=== PATIENT | male | born 1985 | race Caucasian/White ===

== ENCOUNTER 2017-04-02 09:12 | Emergency (ER) | payer OTHER, BC ==
[2017-04-02 09:30] VITALS: BP 140/87; PULSE 87; TEMP 98.3; BMI 26.9
[2017-04-02] MEDS ORDERED: IBUPROFEN 400 MG TABLET (FP) PO ONE ×2 (09:51→09:57)
--- NOTE | 2017-04-02 09:52 | PDOC ---
History of Present Illness - General Chief Complaint: Pain Stated Complaint: ABD PAIN Time Seen by Provider: 04/02/17 09:41 History Source: Patient - History of Present Illness Timing/Duration: reports: constant Abdominal Pain Onset Location: reports: other (L mid abd) Past History - Past Medical History Allergies/Adverse Reactions: Allergies Allergy/AdvReac Type Severity Reaction Status Date / Time cefprozil [From Cefzil] Allergy Verified 04/02/17 09:30 vancomycin Allergy Verified 04/02/17 09:30 Home Medications: Ambulatory Orders Insulin Pump Cartridge [Cartridge Stamped] 1 each SQ DAILY 11/10/13 Cyclobenzaprine HCl [Flexeril -] 10 mg PO Q8H PRN #21 tablet 05/26/16 Diabetes: Yes (iddm) - Surgical History Appendectomy: Yes - Immunization History Immunization Up to Date: Yes - Suicide/Smoking/Psychosocial Hx Smoking History: Never smoked Information on smoking cessation initiated: No Hx Alcohol Use: No Drug/Substance Use Hx: No Substance Use Type: None Review of Systems - Review of Systems Constitutional: No: Chills, Fever ABD/GI: No: Blood Streaked Bowels, Constipated, Diarrhea, Nausea, Vomiting, Tarry Stools : No: Dysuria, Flank Pain, Hematuria *Physical Exam - Vital Signs Last Vital Signs Temp Pulse Resp BP Pulse Ox 98.3 F 87 17 140/87 99 04/02/17 09:28 04/02/17 09:28 04/02/17 09:28 04/02/17 09:28 04/02/17 09:28 - Physical Exam Comments: 04/02/17 09:54 well-appearing gentleman lying on stretcher and currently texting on his phone General Appearance: Yes: Appropriately Dressed. No: Apparent Distress HEENT: positive: Normal Voice Neck: positive: Supple Respiratory/Chest: negative: Respiratory Distress Gastrointestinal/Abdominal: positive: Normal Bowel Sounds, Soft, Other (no abd bulge w/ palpation or with cough in supine/standing position). 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 Has not taken anything for pain. Denies constipation, nausea, vomiting, fever or chills. See exam Abd wall strain No e/o hernia Dc w/ pain control as needed *DC/Admit/Observation/Transfer Diagnosis at time of Disposition: Abdominal wall strain Qualifiers: Encounter type: initial encounter Qualified Code(s): S39.011A - Strain of muscle, fascia and tendon of abdomen, initial encounter - Patient Instructions Printed Discharge Instructions: Muscle Strain Additional Instructions: It appears you have a muscle strain. Take Motrin as needed for pain - Post Discharge Activity Forms/Work/School Notes: Back to Work
== END 2017-04-02 10:05 | disposition home or self-care (01) ==
LOC: JER 09:12
DX: Y35.891A Legal intervention involving other specified means, law enforcement official injured, initial encounter (principal); S39.011A Strain of muscle, fascia and tendon of abdomen, initial encounter; X58.XXXA Exposure to other specified factors, initial encounter; Y93.89 Activity, other specified; Y92.9 Unspecified place or not applicable; E11.9 Type 2 diabetes mellitus without complications; Z79.4 Long term (current) use of insulin
CPT/HCPCS: 99282-25

== ENCOUNTER 2017-05-16 13:36 | Emergency (ER) | payer BC, OTHER ==
[2017-05-16 13:39] VITALS: TEMP 99.7; BMI 26.5
[2017-05-16] MEDS ORDERED: SODIUM CHLORIDE 0.9% 1000 ML INFUS.BAG IV ONE (13:39)
[2017-05-16] MEDS ORDERED: ONDANSETRON 4 MG/2 ML VIAL IVPUSH ONE (13:39)
[2017-05-16] MEDS ORDERED: ONDANSETRON 4 MG/2 ML VIAL ONE (13:48)
[2017-05-16 14:04] LABS: BASOPHIL 1.5 % (0-2.0); EOSINOPHIL 0.8 % (0-4.5); MCHC 34.9 g/dl (32.0-35.9); MEAN CELL VOLUME 91.8 fl (80-96); MEAN PLT VOLUME 9.1 fl (7.5-11.1); NEUTROPHILS 84.3 % (42.8-82.8); PLATELET COUNT 221 K/MM3 (134-434); RDW 12.3 % (11.9-15.9); WHITE BLOOD COUNT 10.1 K/mm3 (4.0-10.8)
[2017-05-16 14:16] LABS: ALBUMIN 4.5 g/dl (3.5-5.0); ALK PHOS 89 U/L (32-92); ANION GAP 7 (8-16); BILIRUBIN,TOTAL 1.5 mg/dl (0.2-1.0); CALCIUM 8.8 mg/dl (8.4-10.2); CO2 25 mmol/L (22-28); CREATININE 0.9 mg/dl (0.6-1.3); GLUCOSE,RANDOM 132 mg/dl (74-106); SGOT/AST 16 U/L (10-42); SGPT/ALT 17 U/L (10-40); TOT PROT 7.9 g/dl (6.4-8.3)
[2017-05-16] MEDS ORDERED: METOCLOPRAMIDE HCL INJECTION 10 MG/2 ML VIAL IVPUSH ONE (14:35)
--- NOTE | 2017-05-16 14:35 | PDOC ---
History of Present Illness - General History Source: Patient Exam Limitations: No Limitations - History of Present Illness Initial Comments: 05/16/17 14:57 The patient is a 31 year old male, with a significant past medical history of IDDM, who presents to the emergency department with approx. 4 to 5 episodes of non-bloody, non bilious vomiting that began at approx. 2 am last night and diarrhea. The patient reports that yesterday he went out to dinner with friends earlier in the evening and ate two stuffed clams. The patient states that his friends ate the food as well but did not experience similar symptoms. The patient reports that his 1 year old daughter at home is currently sick and has been experiencing vomiting for the past few days. He denies recent travel. He denies any recent fevers, chills, headache or dizziness. He denies any recent chest pain or shortness of breath. He denies any recent dysuria, frequency, urgency or hematuria. Allergies: Cefprozil, Vancomycin Primary Care Physician: Dr. Hank Tran <Kike Rankin - Last Filed: 05/16/17 14:57> <Giovany Mercedes - Last Filed: 05/16/17 18:16> - General Chief Complaint: Vomiting/Diarrhea Stated Complaint: n/v/d Time Seen by Provider: 05/16/17 13:39 Past History <Kike Rankin - Last Filed: 05/16/17 14:57> - Past Medical History COPD: No Diabetes: Yes (iddm) - Surgical History Appendectomy: Yes - Immunization History Immunization Up to Date: Yes - Suicide/Smoking/Psychosocial Hx Smoking History: Never smoked Hx Alcohol Use: Yes Drug/Substance Use Hx: No Substance Use Type: Alcohol <Giovany Mercedes - Last Filed: 05/16/17 18:16> - Past Medical History Allergies/Adverse Reactions: Allergies Allergy/AdvReac Type Severity Reaction Status Date / Time cefprozil [From Cefzil] Allergy Verified 05/16/17 13:37 vancomycin Allergy Verified 05/16/17 13:37 Home Medications: Ambulatory Orders Insulin Pump Cartridge [Cartridge Stamped] 1 each SQ DAILY 11/10/13 Ondansetron [Ondansetron Odt] 8 mg PO TID 3 Days #7 tab.rapdis 05/16/17 Review of Systems - Review of Systems Comments:: 05/16/17 15:00 ROS: A complete review of 10 out of 10 review of systems is taken and is negative apart from what is previously mentioned below and in the HPI. <Kike Rankin - Last Filed: 05/16/17 14:57> *Physical Exam - Vital Signs Last Vital Signs Temp Pulse Resp BP Pulse Ox 99.7 F H 94 H 16 154/99 100 05/16/17 13:37 05/16/17 13:37 05/16/17 13:37 05/16/17 13:37 05/16/17 13:37 - Physical Exam Comments: 05/16/17 15:07 Vitals: Triage vital signs reviewed General Appearance: No acute distress, well nourished, well developed Neck: Supple; No nuchal rigidity Chest Wall: Nontender Cardiac: Regular rate and rhythm, no murmurs, no rubs, no gallops Lungs: Clear to auscultation bilateral, good air movement bilaterally Abdomen: Soft, nondistended, normal bowel sounds, nontender to palpation Extremities: Full range of motion to all extremities, no cyanosis, clubbing, or edema Skin: Warm and dry, no rashes or lesions, no rash, no petechiae Neuro: AOX3; Cranial Nerves 2-12 grossly intact, Strength intact to all extremities, Sensation intact to all extremities, gait normal Psych: Normal mood, normal affect <Kike Rankin - Last Filed: 05/16/17 14:57> - Vital Signs Last Vital Signs Temp Pulse Resp BP Pulse Ox 99.7 F H 94 H 16 154/99 100 05/16/17 13:37 05/16/17 13:37 05/16/17 13:37 05/16/17 13:37 05/16/17 13:37 <Giovany Mercedes - Last Filed: 05/16/17 18:16> ED Treatment Course - LABORATORY CBC & Chemistry Diagram: 05/16/17 13:45 05/16/17 13:45 - ADDITIONAL ORDERS Additional order review: Laboratory Results 05/16/17 05/16/17 05/16/17 13:58 13:45 13:45 Sodium 135 L Potassium 4.1 Chloride 103 Carbon Dioxide 25 Anion Gap 7 L BUN 16 Creatinine 0.9 Creat Clearance w eGFR > 60 Random Glucose 132 H Calcium 8.8 Total Bilirubin 1.5 H AST 16 ALT 17 Alkaline Phosphatase 89 Total Protein 7.9 Albumin 4.5 Lipase 17 L Acetone, Qual Negative 05/16/17 13:45 RBC 5.26 MCV 91.8 MCHC 34.9 RDW 12.3 MPV 9.1 Neutrophils % 84.3 H Lymphocytes % 6.3 L Monocytes % 7.1 Eosinophils % 0.8 Basophils % 1.5 - Medications Given in the ED: ED Medications Discontinued Medications Generic Name Dose Route Start Last Admin Trade Name Alfred PRN Reason Stop Dose Admin Diphenhydramine HCl 25 mg 05/16/17 14:35 05/16/17 14:42 Benadryl Injection - IVPUSH 05/16/17 14:36 25 mg ONCE ONE Administration Diphenhydramine HCl 25 mg 05/16/17 14:51 05/16/17 14:55 Benadryl Injection - IVPUSH 05/16/17 14:52 25 mg ONCE ONE Administration Metoclopramide HCl 10 mg 05/16/17 14:35 05/16/17 14:42 Reglan Injection - IVPUSH 05/16/17 14:36 10 mg ONCE ONE Administration Ondansetron HCl 8 mg 05/16/17 13:39 05/16/17 13:55 Zofran Injection IVPUSH 05/16/17 13:40 8 mg ONCE ONE Administration Sodium Chloride 2,000 ml 05/16/17 13:39 05/16/17 13:55 Normal Saline - IV 05/16/17 13:40 2,000 ml ONCE ONE Administration <Kike Rankin - Last Filed: 05/16/17 14:57> - LABORATORY CBC & Chemistry Diagram: 05/16/17 13:45 05/16/17 13:45 - ADDITIONAL ORDERS Additional order review: Laboratory Results 05/16/17 05/16/17 13:45 13:45 Sodium 135 L Potassium 4.1 Chloride 103 Carbon Dioxide 25 Anion Gap 7 L BUN 16 Creatinine 0.9 Creat Clearance w eGFR > 60 Random Glucose 132 H Calcium 8.8 Total Bilirubin 1.5 H AST 16 ALT 17 Alkaline Phosphatase 89 Total Protein 7.9 Albumin 4.5 Acetone, Qual Negative 05/16/17 13:45 RBC 5.26 MCV 91.8 MCHC 34.9 RDW 12.3 MPV 9.1 Neutrophils % 84.3 H Lymphocytes % 6.3 L Monocytes % 7.1 Eosinophils % 0.8 Basophils % 1.5 - Medications Given in the ED: ED Medications Discontinued Medications Generic Name Dose Route Start Last Admin Trade Name Alfred PRElodia Reason Stop Dose Admin Ondansetron HCl 8 mg 05/16/17 13:39 05/16/17 13:55 Zofran Injection IVPUSH 05/16/17 13:40 8 mg ONCE ONE Administration Sodium Chloride 2,000 ml 05/16/17 13:39 05/16/17 13:55 Normal Saline - IV 05/16/17 13:40 2,000 ml ONCE ONE Administration <Giovany Mercedes - Last Filed: 05/16/17 18:16> Medical Decision Making - Medical Decision Making 05/16/17 16:24 History examination consistent with either food borne illness or viral GI illness patient's fingersticks normal patient has an insulin pump. His laboratory analysis is not consistent with DKA. His acetone is negative. During the treatment of patient's nausea he received Reglan. He developed a akathisia-type reaction to the Reglan which was treated with Benadryl and Versed. After resting for approximately half hour this adverse effect resolved patient is feeling much better now tolerating fluids by mouth. We'll discharge home prescription for Zofran he will follow-up with his doctor this week Findings, the need for follow-up, strict return instructions discussed with patient. <Giovany Mercedes - Last Filed: 05/16/17 18:16> *DC/Admit/Observation/Transfer - Attestations Scribe Attestion: 05/16/17 15:08 Documentation prepared by Kike Rankin, acting as nuclear medical technologist for Giovany Mercedes MD. <Kike Rankin - Last Filed: 05/16/17 14:57> - Discharge Dispostion Admit: No <Giovany Mercedes - Last Filed: 05/16/17 18:16> Diagnosis at time of Disposition: Nausea & vomiting Qualifiers: Vomiting type: unspecified Vomiting Intractability: unspecified Qualified Code( s): R11.2 - Nausea with vomiting, unspecified - Discharge Dispostion Disposition: HOME Condition at time of disposition: Stable - Prescriptions Prescriptions: Ondansetron [Ondansetron Odt] 8 mg PO TID 3 Days #7 tab.rapdis - Referrals Referrals: Hnak Tran [Primary Care Provider] - - Patient Instructions Printed Discharge Instructions: Nausea and Vomiting-Adult Additional Instructions: Zofran as prescribed. Drink plenty of fluids. If no vomiting by tomorrow morning okay to proceed to a bland diet. Return to the emergency department immediately for any vomiting or inability to tolerate fluids, development of any abdominal pain or for any concerns. - Post Discharge Activity
[2017-05-16] MEDS ORDERED: MIDAZOLAM HCL 2 MG/2 ML SINGLE DOSE VIAL ONE (15:08)
[2017-05-16] MEDS ORDERED: MIDAZOLAM HCL 2 MG/2 ML SINGLE DOSE VIAL IVPUSH ONE (15:09)
[2017-05-16 15:46] LABS: PH,URINE 5.5 (4.5-8); URINE APPEARANCE Clear; URINE BILIRUBIN 1+ (NEGATIVE); URINE BLOOD Negative (NEGATIVE); URINE GLUCOSE (UA) Negative (NEGATIVE); URINE KETONE 2+ (NEGATIVE); URINE LEUK ESTERASE Negative (NEGATIVE); URINE NITRITE Negative (NEGATIVE); URINE PROTEIN Trace (NEGATIVE)
[2017-05-16 15:47] LABS: URINE COLOR YELLOW
[2017-05-16 16:42] VITALS: BP 126/64; PULSE 78
== END 2017-05-16 16:43 | disposition home or self-care (01) ==
LOC: FER 13:36
PROC: 3E0337Z Introduction of Electrolytic and Water Balance Substance into Peripheral Vein, Percutaneous Approach (ICD-10-PCS; principal; 2017-05-16)
PROC: 3E033GC Introduction of Other Therapeutic Substance into Peripheral Vein, Percutaneous Approach (ICD-10-PCS; 2017-05-16)
DX: R11.2 Nausea with vomiting, unspecified (principal); E11.9 Type 2 diabetes mellitus without complications; Z79.4 Long term (current) use of insulin
CPT/HCPCS: 36415; 80053; 81003; 82009; 83690; 85025; 99282-25

== ENCOUNTER 2017-06-06 07:48 | Emergency (ER) | payer BC, OTHER ==
[2017-06-06 08:18] VITALS: BP 145/79; PULSE 88; TEMP 97.6; BMI 25.8
--- NOTE | 2017-06-06 08:26 | PDOC ---
History of Present Illness <Giovany Mercedes - Last Filed: 06/06/17 09:39> - History of Present Illness Initial Comments: 06/06/17 08:41 The patient is a 31 year old male, with a significant past medical history of IDDM (on insulin pump), who presents to the emergency department with right knee pain today. 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 He states he feels he hyperextended his right knee. He denies hearing a cracking or pop. He reports swelling to the right knee immediately following the injury. He denies bruising. He denies recent travel. He denies any recent fevers, chills, headache or dizziness. He denies any recent chest pain or shortness of breath. He denies any recent dysuria, frequency, urgency or hematuria. He denies diarrhea, contipation, hematochezia. Allergies: Cefprozil, Vancomycin Primary Care Physician: Dr. Hank Tran Surgical Hx: Right tibial plateau fracture repair <Betsey Strickland - Last Filed: 06/06/17 09:47> - General Chief Complaint: Pain, Acute Stated Complaint: KNEE PAIN' Time Seen by Provider: 06/06/17 08:16 Past History - Past Medical History COPD: No Diabetes: Yes (iddm) - Surgical History Appendectomy: Yes - Immunization History Immunization Up to Date: Yes - Suicide/Smoking/Psychosocial Hx Smoking History: Never smoked Have you smoked in the past 12 months: No Hx Alcohol Use: No Drug/Substance Use Hx: No Substance Use Type: Alcohol <Giovany Mercedes - Last Filed: 06/06/17 09:39> <Betsey Strickland - Last Filed: 06/06/17 09:47> - Past Medical History Allergies/Adverse Reactions: Allergies Allergy/AdvReac Type Severity Reaction Status Date / Time cefprozil [From Cefzil] Allergy Verified 06/06/17 08:07 vancomycin Allergy Verified 06/06/17 08:07 Home Medications: Ambulatory Orders Insulin Pump Cartridge [Cartridge Stamped] 1 each SQ DAILY 11/10/13 Review of Systems - Review of Systems Able to Perform ROS?: Yes Comments:: 06/06/17 08:42 A complete review of 10 out of 10 review of systems is taken and is negative apart from what is previously mentioned below and in the HPI. Constitutional: No recent illness; no fever ENT: No sore throat Cardiovascular: No palpitations; no chest pain Pulmonary: No cough; no trouble breathing Gastrointestinal: No nausea; no vomiting; no diarrhea Genitourinary: No urinary problems; no hematuria Skin: No rash Lymph system: No swollen glands Musculoskeletal: (+) right knee joint swelling and pain Neurological: No weakness; oo numbness; No Headache; no vertigo; no lightheadedness Psychiatric:No anxiety; no depression <Betsey Strickland - Last Filed: 06/06/17 09:47> *Physical Exam - Vital Signs Last Vital Signs Temp Pulse Resp BP Pulse Ox 97.6 F 88 18 145/79 100 06/06/17 07:48 06/06/17 07:48 06/06/17 07:48 06/06/17 07:48 06/06/17 07:48 <Giovany Mercedes - Last Filed: 06/06/17 09:39> - Vital Signs Last Vital Signs Temp Pulse Resp BP Pulse Ox 97.6 F 88 18 145/79 100 06/06/17 07:48 06/06/17 07:48 06/06/17 07:48 06/06/17 07:48 06/06/17 07:48 - Physical Exam Comments: 06/06/17 08:42 Vitals: Triage vital signs reviewed General Appearance: No acute distress, well nourished, well developed Head: Atraumatic Eyes: Pupils equal reactive round, extraocular movement intact Neck: Supple; No nuchal rigidity Extremities: (+) right knee tenderness to palpation localized to the medial aspect of the right anterior patella/medial joint line. Mild right knee edema. No bruising. Ligaments of the right knee are stable. 5/5 MS. Full range of motion to all extremities, no cyanosis, clubbing. Skin: Warm and dry, no rashes or lesions, no rash, no petechiae Neuro: (+) mild antalgic gait secondary to right knee pain with weight bearing. AOX3; Cranial Nerves 2-12 grossly intact, Strength intact to all extremities, Sensation intact to all extremities Psych: Normal mood, normal affect <Betsey Strickland - Last Filed: 06/06/17 09:47> ED Treatment Course - RADIOLOGY Radiograph Interpretation: EXAM#: TYPE/EXAM: RESULT: [id number] RAD/KNEE 3 POS-RIGHT Hyperextended knee. Right knee 3 views. Comparison study. X-rays of the right knee September 03, 2013. Metallic screws, plate at this site of the medial tibial plateau fracture is noted. No acute bony abnormalities are seen. No evidence of suprapatellar joint effusion. No evidence of dislocation. Impression. Evidence of suprapatellar joint effusion. No acute bony abnormalities are seen. Metallic plate and screws is observed at this site of the medial tibial plateau fracture. Reported By: Josias Lopez MD 06/06/1716 <Betsey Strickland - Last Filed: 06/06/17 09:47> Medical Decision Making - Medical Decision Making 06/06/17 09:40 No acute fracture dislocation noted on x-ray. Patient provided with crutches will follow-up with orthopedics this week History examination most consistent with knee sprain will need orthopedic follow -up if pain does not improve to rule out underlying meniscal or ligamentous injury Findings, the need for follow-up and strict return instructions discussed with patient. <Giovany Mercedes - Last Filed: 06/06/17 09:39> - Medical Decision Making 06/06/17 08:45 The patient is a 31 year old male, with a significant past medical history of IDDM (on insulin pump), who presents to the emergency department with right knee pain today. Plan: right knee Xray r/o fractures. Ketorolac injection for pain. 06/06/17 08:46 Documentation prepared by Betsey Strickland, acting as medical lab specialist for Giovany Mercedes MD, <Betsey Strickland - Last Filed: 06/06/17 09:47> *DC/Admit/Observation/Transfer <Giovany Mercedes - Last Filed: 06/06/17 09:39> <Betsey Strickland - Last Filed: 06/06/17 09:47> Diagnosis at time of Disposition: Knee sprain Qualifiers: Encounter type: initial encounter Involved ligament of knee: unspecified ligament Laterality: right Qualified Code(s): S83.91XA - Sprain of unspecified site of right knee, initial encounter - Referrals Referrals: Hank Tran [Primary Care Provider] - Tamir Byrnes MD [Staff Physician] - - Patient Instructions Printed Discharge Instructions: Knee Sprain Additional Instructions: Use crutches while ambulating. Avoid putting weight on knee. Ice 20 minutes on 20 minutes off. Take 2 tabs Aleve twice a day for the next 3 days. Drink plenty of fluids. Call today to schedule appointment with Dr. Byrnes for next week. Return to ED for any concerns. - Post Discharge Activity Forms/Work/School Notes: Back to Work
[2017-06-06] MEDS ORDERED: KETOROLAC TROMETHAMINE 30 MG/1 ML VIAL IM ONE (08:40)
[2017-06-06] MEDS ORDERED: KETOROLAC TROMETHAMINE 30 MG/1 ML VIAL ONE (08:44)
== END 2017-06-06 09:56 | disposition home or self-care (01) ==
LOC: JER 07:48
PROC: 3E0233Z Introduction of Anti-inflammatory into Muscle, Percutaneous Approach (ICD-10-PCS; principal; 2017-06-06)
DX: S83.91XA Sprain of unspecified site of right knee, initial encounter (principal); X58.XXXA Exposure to other specified factors, initial encounter; Y93.89 Activity, other specified; Y92.410 Unspecified street and highway as the place of occurrence of the external cause; Y99.0 Civilian activity done for income or pay; E11.9 Type 2 diabetes mellitus without complications; Z79.4 Long term (current) use of insulin; Z96.41 Presence of insulin pump (external) (internal)
CPT/HCPCS: 73562-TC-RT; 99283-25

== ENCOUNTER 2018-12-20 14:51 | Emergency (ER) | payer OTHER ==
[2018-12-20 14:57] VITALS: BP 139/91; PULSE 60; TEMP 98.5; BMI 26.5
--- NOTE | 2018-12-20 15:12 | PDOC ---
History of Present Illness - General Chief Complaint: Pain, Acute Stated Complaint: LT KNEE INJURY Time Seen by Provider: 12/20/18 15:10 History Source: Patient Exam Limitations: No Limitations - History of Present Illness Initial Comments: 12/20/18 15:33 While on duty, [employer], fell backwards twisting his right knee laterally. States felt a pop and had immediate onset of swelling and pain. Is difficult to straighten his leg completely. Had history of tibial plateau fracture with fixation some years ago. Denies numbness or tingling to foot, no hip or other injury. Occurred: reports: just prior to arrival, this morning Severity: reports: moderate Pain Location: reports: lower extremity (right knee ) Modifying Factors: improves with: cold therapy, immobilization Loss of Consciousness: no loss of consciousness Associated Symptoms (Fall): denies symptoms Past History - Travel Traveled outside of the country in the last 30 days: No Close contact w/someone who was outside of country & ill: No - Past Medical History Allergies/Adverse Reactions: Allergies Allergy/AdvReac Type Severity Reaction Status Date / Time cefprozil [From Cefzil] Allergy Verified 12/20/18 14:57 vancomycin Allergy Verified 12/20/18 14:57 Home Medications: Ambulatory Orders Insulin Pump Cartridge [Cartridge Stamped] 1 each SQ DAILY 11/10/13 COPD: No Diabetes: Yes (iddm) - Surgical History Appendectomy: Yes - Immunization History Immunization Up to Date: Yes - Suicide/Smoking/Psychosocial Hx Smoking History: Never smoked Have you smoked in the past 12 months: No Hx Alcohol Use: No Drug/Substance Use Hx: No Substance Use Type: Alcohol Review of Systems - Review of Systems Able to Perform ROS?: Yes Is the patient limited Eritrean proficient: Yes Constitutional: Yes: Symptoms Reported, See HPI, Malaise HEENTM: No: Symptoms Reported Respiratory: No: Symptoms reported Musculoskeletal: Yes: Symptoms Reported, See HPI, Joint Pain, Joint Swelling Integumentary: Yes: Symptoms Reported, See HPI, Bruising All Other Systems: Reviewed and Negative *Physical Exam - Vital Signs Last Vital Signs Temp Pulse Resp BP Pulse Ox 98.5 F 60 18 139/91 97 12/20/18 14:53 12/20/18 14:53 12/20/18 14:53 12/20/18 14:53 12/20/18 14:53 - Physical Exam General Appearance: Yes: Nourished, Appropriately Dressed, Apparent Distress, Moderate Distress HEENT: positive: NEELIMA, Normal ENT Inspection, Normal Voice, TMs Normal, Pharynx Normal Neck: negative: Tender Musculoskeletal: positive: Normal Inspection Extremity: positive: Normal Capillary Refill, Tender, Swelling (significant ballottement to this. Aspect of right knee, patella is mobile but tender, pain is reproduced to the lateral collateral ligamentous area, posterior fossa and unable to test anterior drawer sign due to guarding. Neurovascular intact to foot). 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 Knee immobilizer placed and patient given 2 Percocet tablets for pain relief *DC/Admit/Observation/Transfer Diagnosis at time of Disposition: Right knee sprain Qualifiers: Encounter type: initial encounter Involved ligament of knee: unspecified ligament Qualified Code(s): S83.91XA - Sprain of unspecified site of right knee , initial encounter - Discharge Dispostion Disposition: HOME Condition at time of disposition: Stable Decision to Admit order: No - Referrals Referrals: Wilton Pichardo DO [Staff Physician] - - Patient Instructions Printed Discharge Instructions: DI for Knee Sprain Additional Instructions: Rest, ice to area on and off for 15 minutes 4-6 times a day Avoid heavy lifting or exercise until pain and swelling is resolved or until further directed Keep area highly elevated to reduce swelling Use splints/Jesus wrap as directed Followup with orthopedist in one to 2 days if not improving, if significantly improved may wait one week for followup with orthopedist May use ibuprofen every 6 hours as needed for pain - Post Discharge Activity Forms/Work/School Notes: Back to Work
== END 2018-12-20 16:04 | disposition home or self-care (01) ==
LOC: JERFT 14:51
PROC: 2W3QXYZ Immobilization of Right Lower Leg using Other Device (ICD-10-PCS; principal; 2018-12-20)
DX: S83.8X1A Sprain of other specified parts of right knee, initial encounter (principal); X50.1XXA Overexertion from prolonged static or awkward postures, initial encounter; Y93.89 Activity, other specified; Y92.89 Other specified places as the place of occurrence of the external cause; Y99.0 Civilian activity done for income or pay
CPT/HCPCS: 73562-TC-RT-FY; 99282-25

== ENCOUNTER 2019-08-11 19:22 | Emergency (ER) | payer BC, OTHER ==
[2019-08-11 19:35] VITALS: BP 152/101; PULSE 95; TEMP 98.8; BMI 26.4
--- NOTE | 2019-08-11 19:36 | PDOC ---
Rapid Medical Evaluation Time Seen by Provider: 08/11/19 19:32 Medical Evaluation: Allergies Allergy/AdvReac Type Severity Reaction Status Date / Time cefprozil [From Cefzil] Allergy Verified 12/20/18 14:57 vancomycin Allergy Verified 12/20/18 14:57 08/11/19 19:32 Pt c/o:left sided sharp chest pain intermittently x hours, type I diabetic Pt on brief exam: BP slightly elevated, tachy 104, min reproducible pain to left 6th ics lat of mcl Pt ordered for: cardiac w/u Pt to proceed to the ED 08/11/19 19:38 Discharge Disposition - Diagnosis Chest pain - Referrals - Patient Instructions - Post Discharge Activity
--- NOTE | 2019-08-11 20:55 | PDOC ---
History of Present Illness - General Chief Complaint: Chest Pain Stated Complaint: CHEST PAIN Time Seen by Provider: 08/11/19 19:32 - History of Present Illness Initial Comments: 08/11/19 21:05 33 yo M PMH T1DM, presenting with chest pain. States that it is along his left ribs and into his arm, has been present for several weeks, triggered by movement and reproducible, alleviated by staying still, lasting anywhere from minutes to hours at a time, without associated SOB or N/V. Here today due to new radiation into left arm, which made patient grow concerned. 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 Patient reports that he is under a lot of stress. He has a three young children, works two jobs, and is in the process of buying a home. Denies SUNG, SOB, N/V, fevers/chills, recent travel, myalgias, abd pain, urinary changes, constipation/diarrhea. Past History - Past Medical History Allergies/Adverse Reactions: Allergies Allergy/AdvReac Type Severity Reaction Status Date / Time cefprozil [From Cefzil] Allergy Verified 08/11/19 19:35 vancomycin Allergy Verified 08/11/19 19:35 Home Medications: Ambulatory Orders Insulin Pump Cartridge [Cartridge Stamped] 1 each SQ DAILY 11/10/13 COPD: No Diabetes: Yes (iddm) - Surgical History Appendectomy: Yes - Immunization History Immunization Up to Date: Yes - Psycho Social/Smoking Cessation Hx Smoking History: Never smoked Have you smoked in the past 12 months: No Hx Alcohol Use: No Drug/Substance Use Hx: No Substance Use Type: Alcohol Review of Systems - Review of Systems Comments:: 08/11/19 21:13 GENERAL/CONSTITUTIONAL: denies fever, chills, diaphoresis, generalized weakness, malaise, loss of appetite, weight change HEAD, EYES, EARS, NOSE AND THROAT: denies rhinorrhea, nasal congestion, throat pain, throat swelling, difficulty swallowing, mouth swelling, ear pain, eye pain, visual changes NEUROLOGIC: denies headache, focal weakness or paresthesias, dizziness, unsteady gait, seizure, mental status changes, bladder or bowel incontinence CARDIOVASCULAR: endorses chest pain reproducible with movement. Denies syncope, palpitations, irregular heart rate, lightheadedness, peripheral edema RESPIRATORY: denies cough, shortness of breath, dyspnea with exertion, orthopnea, wheezing, stridor, hemoptysis GASTROINTESTINAL: denies abdominal pain, abdominal distension, nausea, vomiting, diarrhea, constipation, melena, hematochezia GENITOURINARY: denies dysuria, frequency, urgency, hesitancy, hematuria, flank pain, genital pain MUSCULOSKELETAL: denies myalgia, arthralgia, joint swelling, back pain, neck pain SKIN: denies rash, itching, pallor HEMATOLOGIC/IMMUNOLOGIC: denies easy bleeding, easy bruising, lymphadenopathy, frequent infections ENDOCRINE: denies unexplained weight gain, unexplained weight loss, heat intolerance, cold intolerance PSYCHIATRIC: denies anxiety, depression, suicidal or homicidal ideation, hallucinations *Physical Exam - Vital Signs Last Vital Signs Temp Pulse Resp BP Pulse Ox 98.8 F 95 H 18 152/101 H 99 08/11/19 19:32 08/11/19 19:32 08/11/19 19:32 08/11/19 19:32 08/11/19 19:32 - Physical Exam 08/11/19 21:29 Gen: well-developed, well-nourished, NAD Neuro: AAOX4, CN II-XII intact, FTN intact, EOMI, PERRLA, 5/5 strength, SILT HEENT: atraumatic, normocephalic, dry mucous membranes Neck: trachea midline, supple CV: regular rate, regular rhythm, no murmurs, rubs, or gallops Pulm: CTA b/l, no wheezing Abd: soft, non-distended, non-tender MSK: full ROM, intact pulses Extr: no edema, no deformities Skin: warm, dry Medical Decision Making - Medical Decision Making 08/11/19 21:10 ACS very unlikely considering patient's age and risk factors, and symptoms reproducible. Likely musculoskeletal. However, will r/o. - CBC, CMP - coags - EKG - CXR EKG normal sinus at 95 bpm, HI 154, QRS 96, QTc 442, no ischemic changes. 08/11/19 21:41 CXR without acute abnormality. Patient declines to wait for results of blood tests. Risks of potential worsening chest pain and explained to the patient, and he expresses understanding of these risks. He has capacity to make this decision. Will sign out AMA. Discharge - Discharge Information Problems reviewed: Yes Clinical Impression/Diagnosis: Chest pain Disposition: AGAINST MEDICAL ADVICE - Follow up/Referral Referrals: Dana Sánchez MD [Primary Care Provider] - - Patient Discharge Instructions Patient Printed Discharge Instructions: DI for Atypical Chest Pain Additional Instructions: You were seen with chest pain. Your EKG and chest X ray did not show any abnormalities, and you refused to stay for lab results. You were signed out against medical advice. Follow up with your primary care doctor within one week. Return to the ED if you develop worsening symptoms. - Post Discharge Activity
[2019-08-11 21:46] LABS: BASO % 0.8 % (0-2.0); EOS % 1.9 % (0-4.5); HEMATOCRIT 45.3 % (35.4-49); HEMOGLOBIN 15.6 GM/dL (11.7-16.9); LYMPH % 29.6 % (8-40); MCH 32.2 pg (25.7-33.7); MCHC 34.4 g/dl (32.0-35.9); MEAN CELL VOLUME 93.4 fl (80-96); MEAN PLT VOLUME 8.5 fl (7.5-11.1); MONO % 8.4 % (3.8-10.2); NEUT % 59.3 % (42.8-82.8); PLATELET COUNT 275 K/MM3 (134-434); RBC 4.84 M/mm3 (4.00-5.60); RDW 12.8 % (11.9-15.9); WHITE BLOOD COUNT 9.5 K/mm3 (4.0-10.0)
--- NOTE | 2019-08-11 21:47 | PDOC ---
Documentation entered by Mellissa Rosa SCRIBE, acting as scribe for Angela Spivey DO. Angela Spivey DO: This documentation has been prepared by the Shelley ashton Xhesika, SCRIBE, under my direction and personally reviewed by me in its entirety. I confirm that the documentation accurately reflects all work, treatment, procedures, and medical decision making performed by me. Attending Attestation - Resident Resident Name: HeatonYannickdomi - ED Attending Attestation I have performed the following: I have examined & evaluated the patient, The case was reviewed & discussed with the resident, I agree w/resident's findings & plan, Exceptions are as noted - HPI HPI: 08/11/19 21:40 The patient is a 33 year old male with a significant PMH of type 1 DM who presents to the emergency department for 3 weeks of chest pain. Pt states his pain is located under his L rib and radiating to his L arm today, prompting his arrival to the ED. pt states his symptoms are worsened with movements and alleviated when standing still. Pt states he has been stressed lately, has 2 jobs and young kids at home. The patient denies shortness of breath, headache and dizziness. Denies fever, chills, cough, nausea, vomiting, diarrhea and constipation. Allergies: Cefprozil, vancomycin - Physicial Exam PE: 08/11/19 21:41 GENERAL: Awake, alert, and fully oriented, in no acute distress HEAD: No signs of trauma EYES: PERRLA, EOMI, sclera anicteric, conjunctiva clear ENT: Auricles normal inspection, hearing grossly normal, nares patent, oropharynx clear without exudates. Moist mucosa NECK: Normal ROM, supple, no lymphadenopathy, JVD, or masses LUNGS: Breath sounds equal, clear to auscultation bilaterally. No wheezes, and no crackles HEART: Regular rate and rhythm, normal S1 and S2, no murmurs, rubs or gallops ABDOMEN: Soft, nontender, normoactive bowel sounds. No guarding, no rebound. No masses EXTREMITIES: Normal range of motion, no edema. No clubbing or cyanosis. No cords, erythema, or tenderness NEUROLOGICAL: Cranial nerves II through XII grossly intact. Normal speech, normal gait SKIN: Warm, Dry, normal turgor, no rashes lesions noted. - Medical Decision Making 08/11/19 21:43 I, Dr. Angela Spivey, DO, attest that this document has been prepared under my direction and personally reviewed by me in its entirety. I further attest, that it accurately reflects all work, treatment, procedures and medical decision -making performed by me. a/p: 33yo male with intermittent L sided cp with some paresthesias down the L arm today -worse with movement -no cough/congestion, no recent uri infections -denies abd pain -drinks lots of caffeine, has 3 kids, works 3 jobs, feels stressed and anxious -very anxious in the Er -will send labs, cxr, ekg -will monitor and reassess 08/11/19 21:44 pt states he doesn't want to wait for labs states he will call for results discussed ama - pt states he wants to sign out ama states being in the ER with flu patients/sick patients is making him more nervous about catching something and bringing it home to his kids cxr clear pt will sign ama paperwork Note: The patient insists on leaving the emergency dept and is signing out against medical advice. The patient understands the risks and complications that may result from the refusal of medical care and admission which includes and permanent disability. The patient has the mental capacity of understanding the risks of refusing care and is capable of making an informed decision. The patient was instructed to return to the emergency department should he change his mind regarding medical care or should his condition worsen. The patient signed the Against Medical Advice form. Heart Score/ECG Review - ECG Intrepretation Comment:: 08/11/19 21:46 sinus at 95, nl axis, nl interval, no acute st/t wave findings
[2019-08-11 21:58] LABS: INR 0.92 (0.83-1.09); PROTHROMBIN TIME (PATIENT) 10.9 SEC (9.7-13.0)
[2019-08-11 22:00] LABS: ACTIVATED PTT 37.4 SECONDS (25.2-36.5)
[2019-08-11 22:19] LABS: ALBUMIN 4.3 g/dl (3.4-5.0); BILIRUBIN,TOTAL 0.4 mg/dL (0.2-1); BLOOD UREA NITROGEN 13.6 mg/dL (7-18); CALCIUM 9.6 mg/dL (8.5-10.1); CREATININE 0.9 mg/dL (0.55-1.3); POTASSIUM 4.1 mmol/L (3.5-5.1); TOT PROT 7.8 g/dl (6.4-8.2)
--- NOTE | 2019-08-12 16:04 | EKG ---
Test Reason : Blood Pressure : / mmHG Vent. Rate : 095 BPM Atrial Rate : 095 BPM P-R Int : 154 ms QRS Dur : 096 ms QT Int : 352 ms P-R-T Axes : 049 061 066 degrees QTc Int : 442 ms NORMAL SINUS RHYTHM NONSPECIFIC ST ABNORMALITY ABNORMAL ECG WHEN COMPARED WITH ECG OF 07-APR-2018 10:02, NO SIGNIFICANT CHANGE WAS FOUND Confirmed by ALTON HURT MD ([id number]) on 08/12/2019 4:04:20 PM Referred By: Confirmed By:ALTON HURT MD
== END 2019-08-11 21:45 | disposition left against medical advice (07) ==
LOC: JER 19:22
DX: R05 Cough (principal)
CPT/HCPCS: 36415; 71046-TC-FY; 80053; 82550; 84484; 85025; 85610; 85730; 93005; 93010; 99285-25

== ENCOUNTER 2019-12-18 23:15 | Emergency (ER) | payer BC, OTHER ==
[2019-12-18 23:24] VITALS: BP 139/75; TEMP 97.8; BMI 26.5
[2019-12-19] MEDS ORDERED: LIDOCAINE 5% TOPICAL PATCH TP ONE (00:08)
[2019-12-19] MEDS ORDERED: CYCLOBENZAPRINE HCL 10 MG TABLET (FP) PO ONE (00:11)
[2019-12-19] MEDS ORDERED: IBUPROFEN 600 MG TABLET (FP) PO ONE (00:12)
[2019-12-19] MEDS ORDERED: KETOROLAC TROMETHAMINE 60 MG/2 ML VIAL IM ONE (00:20)
[2019-12-19] MEDS ORDERED: LIDOCAINE 5% TOPICAL PATCH ONE (00:31)
[2019-12-19] MEDS ORDERED: KETOROLAC TROMETHAMINE 30 MG/1 ML VIAL IM ONE (00:37)
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
[2019-12-19 01:59] VITALS: PULSE 70
[2019-12-19] MEDS ORDERED: LIDOCAINE PATCH REMOVAL MC SCH (22:00)
== END 2019-12-19 01:40 | disposition home or self-care (01) ==
LOC: JER 23:15 → SUPCPDRO 23:15 → JER 12-19 01:40
PROC: 3E023GC Introduction of Other Therapeutic Substance into Muscle, Percutaneous Approach (ICD-10-PCS; principal; 2019-12-19)
DX: J70.5 Respiratory conditions due to smoke inhalation (principal); T67.5XXA Heat exhaustion, unspecified, initial encounter; R53.1 Weakness
CPT/HCPCS: 82375; 82962; 99284-25

== ENCOUNTER 2020-08-09 09:47 | Emergency (ER) | payer OTHER ==
[2020-08-09 09:55] VITALS: BP 136/100; PULSE 86; TEMP 98.4; BMI 25.7
[2020-08-09] MEDS ORDERED: IBUPROFEN 400 MG TABLET (FP) PO ONE ×2 (10:16→11:36)
[2020-08-09 11:54] LABS: URINE APPEARANCE CLEAR; URINE BILIRUBIN NEGATIVE (NEGATIVE); URINE COLOR DK YELLOW; URINE GLUCOSE (UA) TRACE (NEGATIVE); URINE KETONE 1+ (NEGATIVE); URINE LEUK ESTERASE NEGATIVE (NEGATIVE); URINE NITRITE NEGATIVE (NEGATIVE); URINE PROTEIN TRACE (NEGATIVE); URINE UROBILINOGEN 0.2 mg/dL (0.2-1.0)
[2020-08-09 15:03] LABS: EPI CELLS 14 /uL (0-25.1); HYALINE CASTS 4 /uL (0-3.1); URINE BACTERIA 66 /uL (0-1359); URINE RBC 3 /uL (0-23.9); URINE WBC 10 /uL (0-25.8)
== END 2020-08-09 12:52 | disposition home or self-care (01) ==
LOC: JERFT 09:47
DX: R10.32 Left lower quadrant pain (principal); N43.3 Hydrocele, unspecified
CPT/HCPCS: 36415; 76870-TC; 81003; 87086; 87491; 87591; 99284-25

== ENCOUNTER 2021-04-07 22:59 | Emergency (ER) | payer OTHER ==
[2021-04-07 23:12] VITALS: BP 131/85; PULSE 91; TEMP 98.3; BMI 25.7
[2021-04-08] MEDS ORDERED: ACETAMINOPHEN 500 MG TABLET (FP) PO ONE (00:06)
[2021-04-08] MEDS ORDERED: LIDOCAINE 5% TOPICAL PATCH TP ONE (00:06)
[2021-04-08] MEDS ORDERED: ACETAMINOPHEN 325 MG TABLET (FP) ONE (00:07)
[2021-04-08] MEDS ORDERED: LIDOCAINE 5% TOPICAL PATCH ONE (00:07)
[2021-04-08] MEDS ORDERED: LIDOCAINE PATCH REMOVAL MC SCH (22:00)
== END 2021-04-08 01:12 | disposition home or self-care (01) ==
LOC: JER 22:59
DX: M54.6 Pain in thoracic spine (principal)
CPT/HCPCS: 99283-25

== ENCOUNTER 2021-05-28 14:21 | Emergency (ER) | payer OTHER ==
[2021-05-28 14:31] VITALS: BP 136/82; PULSE 101; TEMP 97.8; BMI 25.7
== END 2021-05-28 14:51 | disposition home or self-care (01) ==
LOC: JERFT 14:21
DX: S83.92XA Sprain of unspecified site of left knee, initial encounter (principal); X50.0XXA Overexertion from strenuous movement or load, initial encounter; W10.1XXA Fall (on)(from) sidewalk curb, initial encounter
CPT/HCPCS: 99283-25

== ENCOUNTER 2021-08-20 19:25 | Emergency (ER) | payer OTHER ==
[2021-08-20 19:33] VITALS: BP 137/77; PULSE 71; TEMP 98.1; BMI 26.4
== END 2021-08-20 22:09 | disposition home or self-care (01) ==
LOC: JERFT 19:25
DX: M54.50 Low back pain, unspecified (principal)
CPT/HCPCS: 99282-25

== ENCOUNTER 2021-08-31 07:22 | Emergency (ER) | payer OTHER ==
[2021-08-31 07:28] VITALS: BP 145/72; PULSE 84; TEMP 97.9; BMI 25.7
[2021-08-31] MEDS ORDERED: KETOROLAC TROMETHAMINE 30 MG/1 ML VIAL ONE (08:24)
[2021-08-31] MEDS ORDERED: KETOROLAC TROMETHAMINE 60 MG/2 ML VIAL IM ONE (08:24)
== END 2021-08-31 08:39 | disposition home or self-care (01) ==
LOC: JERFT 07:22
PROC: 3E023GC Introduction of Other Therapeutic Substance into Muscle, Percutaneous Approach (ICD-10-PCS; principal; 2021-08-31)
DX: M54.89 Other dorsalgia (principal)
CPT/HCPCS: 99284-25

== ENCOUNTER 2022-10-10 09:32 | Emergency (ER) | payer OTHER ==
[2022-10-10 09:48] VITALS: BP 161/87; PULSE 67; RESP 18; TEMP 98.3; BMI 25.7
[2022-10-10] MEDS ORDERED: LIDOCAINE 5% TOPICAL PATCH TP ONE (10:38)
[2022-10-10] MEDS ORDERED: KETOROLAC TROMETHAMINE 30 MG/1 ML VIAL IM ONE (10:38)
== END 2022-10-10 11:20 | disposition home or self-care (01) ==
LOC: JERFT 09:32
DX: S39.012A Strain of muscle, fascia and tendon of lower back, initial encounter (principal); W20.1XXA Struck by object due to collapse of building, initial encounter; Y99.0 Civilian activity done for income or pay
CPT/HCPCS: 72100-TC-FY; 99283-25

== ENCOUNTER 2023-05-26 17:23 | Emergency (ER) | payer OTHER ==
[2023-05-26 17:53] VITALS: BP 140/96; PULSE 96; RESP 17; TEMP 98.4; BMI 25.1
[2023-05-26] MEDS ORDERED: KETOROLAC TROMETHAMINE 30 MG/1 ML VIAL IM ONE (19:16)
[2023-05-26] MEDS ORDERED: KETOROLAC TROMETHAMINE 30 MG/1 ML VIAL ONE (19:18)
== END 2023-05-26 19:50 | disposition home or self-care (01) ==
LOC: JERFT 17:23
PROC: 3E0233Z Introduction of Anti-inflammatory into Muscle, Percutaneous Approach (ICD-10-PCS; principal; 2023-05-26)
DX: M75.51 Bursitis of right shoulder (principal); M25.511 Pain in right shoulder; W11.XXXA Fall on and from ladder, initial encounter; Y93.39 Activity, other involving climbing, rappelling and jumping off
CPT/HCPCS: 73030-TC-RT-FY; 99284-25

== ENCOUNTER 2023-11-03 15:39 | Emergency (ER) | payer OTHER ==
[2023-11-03 15:55] VITALS: BP 164/94; PULSE 98; RESP 18; TEMP 98.3; BMI 26.5
== END 2023-11-03 17:13 | disposition home or self-care (01) ==
LOC: JER 15:39 → JERFT 15:39
DX: Z20.3 Contact with and (suspected) exposure to rabies (principal)
CPT/HCPCS: 99283-25

== ENCOUNTER 2024-07-25 16:24 | Emergency (ER) | payer OTHER ==
[2024-07-25 16:40] VITALS: BP 120/78; PULSE 92; RESP 18; TEMP 98.8; BMI 26.5
[2024-07-25] MEDS ORDERED: KETOROLAC TROMETHAMINE 30 MG/1 ML VIAL ONE (16:59)
[2024-07-25] MEDS: KETOROLAC TROMETHAMINE 30 MG/1 ML VIAL IM ONE (17:05)
== END 2024-07-25 17:43 | disposition home or self-care (01) ==
LOC: JERFT 16:24
PROC: 3E0233Z Introduction of Anti-inflammatory into Muscle, Percutaneous Approach (ICD-10-PCS; principal; 2024-07-25)
DX: S39.012A Strain of muscle, fascia and tendon of lower back, initial encounter (principal); W01.0XXA Fall on same level from slipping, tripping and stumbling without subsequent striking against object, initial encounter
CPT/HCPCS: 99284-25